=== PATIENT | female | born 1945 | race Caucasian/White ===

== ENCOUNTER 2016-12-04 19:50 | Inpatient (IN) | payer MEDICARE, MEDICAID, OTHER ==
[~2016-12-04] VITALS: Ht 172.7 cm; Wt 58.0 kg
[~2016-12-04 19:50] MED LIST: CARV6.25 PO; GABA300C3 PO; GLUCTAB PO; LEVO112T2 PO; METF500 PO; NORV5TAB PO; PERC7.5T13 PO; RANI150 PO; ZOLP10TA3 PO
[2016-12-04 19:52] VITALS: BP 104/51; PULSE 79; RESP 16; TEMP 97.8; O2SAT 97
--- NOTE | 2016-12-04 20:00 | PD ---
Physical Exam Time Seen by Provider: 19:57 Narrative 71 year old with complaints of generalized weakness, decreased appetite for the past few days, diarrhea today. Appears pale per daughter. Denies abdominal pain, d/p, sob, uri symptoms, fevers, recent abx use. VSS seen at triage desk. Awaiting bed placement. Data Data Last Documented VS Vital Signs Date Time Temp Pulse Resp B/P Pulse Ox O2 Delivery O2 Flow Rate FiO2 12/04/16 19:52 97.8 79 16 104/51 97 MDM Medical Record Reviewed: Yes Supervised Visit with PEPE: Yes Panfilo Jean Dec 04, 2016 20:00
[2016-12-04 20:27] VITALS: BP 110/62; PULSE 78; RESP 16; O2SAT 96
[2016-12-04] MEDS ORDERED: SODIUM CHLOR 0.9% 1000 ML INJ 1,000 ML IV ONE ×2 (20:30→22:00)
[2016-12-04] MEDS ORDERED: ONDANSETRON HCL 4 MG/2 ML VIAL IV ONE (20:30)
--- NOTE | 2016-12-04 20:34 | PD ---
HPI Chief Complaint: General Weakness Time Seen by Provider: 20:14 Travel History International Travel<30 days: No Contact w/Intl Traveler<30days: No Traveled to known affect area: No History of Present Illness HPI The patient is a 71 year old female who presents to the [facility] emergency department with a history of generalized weakness and fatigue with increased sleep over the last week and 3 today. She reports that today she began to have diarrhea. She reports that the stool is light brown in color and she's had diarrhea 4 times. She denies having any nausea or vomiting, however she has had a diminished appetite and has not been eating solids or drinking liquids today. She reports that her urine does have a strong odor, however it has normal coloration. She denies having any dysuria, hematuria, urinary urgency, or frequency. She denies any recent antibiotic use, foreign travel, camping, or unusual food intake. She does report having one family member who has had diarrhea for the last 2 weeks. A review of systems, the patient denies any recent fevers, cough, congestion, neck pain, chest pain, shortness of breath, abdominal pain, one-sided weakness, slurred speech, facial droop, difficulty with word finding ability, or dizziness PFSH Past Medical History Narrative Medical The patient's past medical history is significant for hypothyroid disorder, history of chronic back pain related to a back injury status post surgical repair approximately a year and a half ago, history of a DVT, history of hypertension, history of arthritis Hx Anticoagulant Therapy: Yes Heart Rhythm Problems: Yes Cardiovascular Problems: Yes Chemotherapy: Yes Dementia: Yes Diabetes: Yes Deep Vein Thrombosis: Yes (HX OF DVT) Hypertension: Yes Insomnia: Yes Respiratory: Yes Thyroid Disease: Yes (HYPOTHYROIDISM) ?: Not Past Surgical History Narrative Surgical The patient's past surgical history is significant for right knee replacement, back surgery, thyroidectomy, tonsillectomy Cholecystectomy: Yes Ear Surgery: Yes Joint Replacement: Yes (R. KNEE REPLACEMENT) Other Surgery: Yes (THYROIDECTOMY) Social History Alcohol Use: No Tobacco Use: No Substance Use: No Allergies-Medications (Allergen,Severity, Reaction): Coded Allergies: No Known Allergies (Unverified , 12/04/16) Reported Meds & Prescriptions Reported Meds & Active Scripts Active Norvasc (Amlodipine Besylate) 5 Mg Tab 5 Mg PO DAILY 30 Days Reported Zantac 150 Mg Tab (Ranitidine HCl) 150 Mg Tab 150 Mg PO BID Metformin (Metformin HCl) 500 Mg Tab 500 Mg PO DAILY IN THE PM Glucophage 500 mg (Metformin HCl) 500 Mg Tab 1,000 Mg PO DAILY IN THE AM Percocet 7.5/325 (Oxycodone/Acetaminophen) Oxycodone 7.5/325 Acetaminophen Tab 1 Tab PO BID Zolpidem Tartrate 10 Mg Tab 10 Mg PO HS Take 30 minutes before bedtime Levothyroxine 112 mcg (Levothyroxine Sodium) 112 Mcg Tab 224 Mcg PO DAILY Take 30 minutes before breakfast Coreg 6.25 mg (Carvedilol) 6.25 Mg Tab 6.25 Mg PO DAILY IN THE PM Coreg 6.25 mg (Carvedilol) 6.25 Mg Tab 12.5 Mg PO DAILY IN THE AM Gabapentin 300 Mg Cap 300 Mg PO HS Review of Systems Except as stated in HPI: all other systems reviewed are Neg General / Constitutional: No: Fever Eyes: No: Visual changes HENT: No: Headaches, Sore Throat, Rhinorrhea, Congestion Cardiovascular: No: Chest Pain or Discomfort, Dyspnea on exertion Respiratory: No: Cough, Shortness of Breath Gastrointestinal: Positive: Diarrhea, Changes in Bowel Habits, No: Nausea, Vomiting, Abdominal Pain, Hematemesis, Hematochezia, Constipation, Indigestion, Loss of Appetite Genitourinary: No: Dysuria, Flank Pain Musculoskeletal: No: Pain Skin: No Rash Neurologic: Positive: Weakness (generalized weakness), No: Focal Abnormalities , Change in Mentation, Slurred Speech, Sensory Disturbance Psychiatric: No: Depression Endocrine: No: Polydipsia Hematologic/Lymphatic: No: Easy Bruising Physical Exam Narrative General: The patient is a well-developed well-nourished female in no acute distress. Head and Neck exam: Head is normocephalic atraumatic. Eyes: EOMI, pupils are equal round and reactive to light. Nose: Midline septum with pink mucous membranes Mouth: Dentition unremarkable. Dry mucus membranes. Posterior oropharynx is not erythematous. No tonsillar hypertrophy. Uvula midline. Airway patent. Neck: No palpable lymphadenopathy. No nuchal rigidity. No thyromegaly. Cardiovascular: Regular rate and rhythm without murmurs, gallops, or rubs. Lungs: Clear to auscultation bilaterally. No wheezes, rhonchi, or rales. Abdomen: Soft, without tenderness to palpation in all 4 quadrants of the abdomen. No guarding, rebound, or rigidity. Normal bowel sounds are audible. No tenderness on palpation of McBurney's point. Extremities: No clubbing, cyanosis, or edema. 2+ pulses in all 4 extremities. No calf tenderness on palpation. Back: No spinous process tenderness to palpation. No costovertebral angle tenderness to palpation. Neurologic Exam: Cranial nerves 2-12 were intact on exam. Strength is 5/5 in all 4 extremities. No sensory deficits noted. Skin Exam: No rash noted. Intact skin that is warm and dry. The patient has poor skin turgor. Data Data Last Documented VS Vital Signs Date Time Temp Pulse Resp B/P Pulse Ox O2 Delivery O2 Flow Rate FiO2 12/04/16 20:40 16 12/04/16 20:27 80 12/04/16 20:27 110/62 96 Room Air 12/04/16 19:52 97.8 Orders Electrocardiogram (12/04/16 20:25) Complete Blood Count With Diff (12/04/16 20:25) Comprehensive Metabolic Panel (12/04/16 20:25) Creatine Kinase (Cpk) (12/04/16 20:25) Ckmb (Isoenzyme) Profile (12/04/16 20:25) Troponin I (12/04/16 20:25) B-Type Natriuretic Peptide (12/04/16 20:25) Blood Culture (12/04/16 20:25) C-Reactive Protein (Crp) (12/04/16 20:25) Lipase (12/04/16 20:25) Urinalysis - C+S If Indicated (12/04/16 20:25) Magnesium (Mg) (12/04/16 20:25) Chest, Single Ap (12/04/16 20:25) Iv Access Insert/Monitor (12/04/16 20:25) Ecg Monitoring (12/04/16 20:25) Oximetry (12/04/16 20:25) Sodium Chlor 0.9% 1000 Ml Inj (Ns 1000 M (12/04/16 20:30) Ondansetron Inj (Zofran Inj) (12/04/16 20:30) Urine Culture (12/04/16 21:00) Sodium Chlor 0.9% 1000 Ml Inj (Ns 1000 M (12/04/16 22:00) Cefepime Inj (Maxipime Inj) (12/04/16 21:58) Lactic Acid Sepsis Protocol (12/04/16 22:05) Admit Order (Ed Use Only) (12/04/16 22:15) Labs Laboratory Tests Test 12/04/16 21:00 White Blood Count 12.0 TH/MM3 Red Blood Count 3.70 MIL/MM3 Hemoglobin 10.8 GM/DL Hematocrit 32.0 % Mean Corpuscular Volume 86.5 FL Mean Corpuscular Hemoglobin 29.3 PG Mean Corpuscular Hemoglobin 33.9 % Concent Red Cell Distribution Width 13.2 % Platelet Count 235 TH/MM3 Mean Platelet Volume 10.3 FL Neutrophils (%) (Auto) 84.8 % Lymphocytes (%) (Auto) 5.2 % Monocytes (%) (Auto) 9.5 % Eosinophils (%) (Auto) 0.2 % Basophils (%) (Auto) 0.3 % Neutrophils # (Auto) 10.1 TH/MM3 Lymphocytes # (Auto) 0.6 TH/MM3 Monocytes # (Auto) 1.1 TH/MM3 Eosinophils # (Auto) 0.0 TH/MM3 Basophils # (Auto) 0.0 TH/MM3 CBC Comment DIFF FINAL Differential Comment Urine Color LIGHT-RED Urine Turbidity CLOUDY Urine pH 5.5 Urine Specific [place] 1.022 Urine Protein 100 mg/dL Urine Glucose (UA) NEG mg/dL Urine Ketones NEG mg/dL Urine Occult Blood LARGE Urine Nitrite NEG Urine Bilirubin NEG Urine Urobilinogen LESS THAN 2.0 MG/DL Urine Leukocyte Esterase LARGE Urine RBC 91 /hpf Urine WBC /hpf Urine WBC Clumps MANY Urine Squamous Epithelial 2 /hpf Cells Urine Bacteria MANY /hpf Urine Hyaline Casts 27 /lpf Microscopic Urinalysis Comment CULTURE INDICATED Sodium Level 139 MEQ/L Potassium Level 3.7 MEQ/L Chloride Level 103 MEQ/L Carbon Dioxide Level 22.7 MEQ/L Anion Gap 13 MEQ/L Blood Urea Nitrogen 63 MG/DL Creatinine 2.52 MG/DL Estimat Glomerular Filtration 19 ML/MIN Rate Random Glucose 107 MG/DL Calcium Level 8.6 MG/DL Magnesium Level 2.1 MG/DL Total Bilirubin 0.5 MG/DL Aspartate Amino Transf 20 U/L (AST/SGOT) Alanine Aminotransferase 17 U/L (ALT/SGPT) Alkaline Phosphatase 73 U/L Total Creatine Kinase 65 U/L Troponin I LESS THAN 0.02 NG/ML C-Reactive Protein 19.00 MG/DL B-Type Natriuretic Peptide 51 PG/ML Total Protein 7.3 GM/DL Albumin 2.9 GM/DL Lipase 200 U/L [facility] Medical Decision Making Medical Screen Exam Complete: Yes Emergency Medical Condition: Yes Medical Record Reviewed: Yes Interpretation(s) Last Impressions Chest X-Ray 12/04/162024 Signed Impressions: Service Date/Time: Sunday, December 04, 2016 20:29 - CONCLUSION: No acute disease. Jeffery Whiting MD Differential Diagnosis Dehydration, versus electrolyte derangements, versus sepsis, versus urinary tract infection, versus pneumonia, versus acute coronary syndrome Narrative Course During the course of the patients emergency department visit, the patients history, examination, and differential diagnosis were reviewed with the patient. The patient had IV access obtained and blood work sent for analysis. The patient was placed on a cross enterprise integrator with oximetry and blood pressure monitoring. An EKG was ordered. The patient was provided normal saline a 1 L IV fluid bolus, Zofran 4 mg IV. The patients laboratory studies were reviewed and remarkable for a white count of 12, hemoglobin 10.8, platelets 235 with 84.8 neutrophils, monocytes 5.2 monocytes 9.5, CMP is remarkable for BUN of 63, creatinine of 2.52 which is greatly increased compared to previously at 21 and 0.72 respectively in November 2015. Cardiac enzymes are unremarkable, C-reactive protein is elevated at 19, lipase 200, urinalysis appears to be the source of infection with large leukocyte esterase 91 rbc's innumerable WBCs, many clumps many bacteria. The patient meets sepsis criteria, therefore the patient was covered with cefepime 2 g IV for her urinary tract infection. The patient was given a second liter of normal saline IV fluids. A lactic acid was sent to complete her workup. Radiology studies were reviewed and remarkable for a chest x-ray shows no acute abnormality. The patients results were discussed with the patient, including the plan of care. I explained that further testing and/ or monitoring is indicated based on the patients history, examination, and/ or laboratory findings. Therefore, I recommended admission for additional evaluation. The patient expressed understanding and was agreeable with this plan. The patient was admitted to the hospital in guarded condition and [facility] Sepsis Criteria SIRS Criteria (2 or more): Heart rate over 90, WBC > 93545, < 4000 or > 10% bands Sepsis Criteria (SIRS+source): Infect source susp/known Criteria Outcome: Meets SIRS criteria, Meets sepsis criteria Physician Communication Physician Communication The patient's case will be discussed with Dr. Argueta. She did agree to admit the patient for further evaluation and treatment at this time. Diagnosis Primary Impression: Generalized weakness Additional Impressions: Urinary tract infection Qualified Code: N39.0 - Urinary tract infection without hematuria, site unspecified Acute renal failure Qualified Code: N17.9 - Acute renal failure, unspecified acute renal failure type Sepsis Qualified Code: A41.9 - Sepsis, due to unspecified organism Admitting Information Admitting Physician Requests: Viky Roy MD Dec 04, 2016 20:34
[2016-12-04 20:40] VITALS: RESP 16
--- NOTE | 2016-12-04 21:20 | RADRPT ---
EXAM DATE/TIME: 12/04/2016 20:29 [facility] COMPARISON: No previous studies available for comparison. INDICATIONS : Chest pain. MEDICAL HISTORY : None. SURGICAL HISTORY : None. ENCOUNTER: Initial ACUITY: 1 day PAIN SCORE: 0/10 LOCATION: Bilateral chest FINDINGS: A single view of the chest demonstrates the lungs to be symmetrically aerated without evidence of mas s, infiltrate or effusion. The cardiomediastinal contours are unremarkable. The patient is status po st upper thoracic fusion with pedicle screws and posterior fixation tracey. There are overlying electroc ardiogram leads. CONCLUSION: No acute disease. Jeffery Whiting MD on December 04, 2016 at 21:17 Board Certified Radiologist. This report was verified electronically.
[2016-12-04 21:31] LABS: AUTOMATED NEUTROPHIL # 10.1 TH/MM3 (1.8-7.7); BASOPHIL % 0.3 % (0.0-2.0); EOSINOPHIL % 0.2 % (0.0-4.0); HEMO FLAGS DIFF FINAL; LYMPH % 5.2 % (9.0-44.0); LYMPHOCYTE # 0.6 TH/MM3 (1.0-4.8); MEAN CELL VOLUME 86.5 FL (80.0-100.0); MEAN CORPUSCULAR HEMOGLOBIN 29.3 PG (27.0-34.0); MEAN CORPUSCULAR HGB CONC 33.9 % (32.0-36.0); MONO % 9.5 % (0.0-8.0); NEUT % 84.8 % (16.0-70.0); PLATELET COUNT 235 TH/MM3 (150-450); RED CELL DISTRIBUTION WIDTH 13.2 % (11.6-17.2)
[2016-12-04 21:32] LABS: BACTERIA, URINE MANY /hpf; BLOOD, URINE LARGE (NEG); COMMENT (UR) CULTURE INDICATED; CULTURE IF INDICATED CULTURE INDICATED; GLUCOSE,URINE NEG (NEG); HYALINE CAST, URINE 27 /lpf (RARE); KETONE, URINE NEG (NEG); NITRITE,URINE NEG (NEG); PH, URINE 5.5 (5.0-8.5); SQUAMOUS EPITHELIAL CELL URINE 2 /hpf (0-5)
[2016-12-04 21:33] LABS: URINE COLOR LIGHT-RED (YELLW/STRAW)
[2016-12-04 21:46] LABS: ANION GAP 13 MEQ/L (5-15); AST (GOT) 20 U/L (15-37); BICARBONATE 22.7 MEQ/L (21.0-32.0); BLOOD UREA NITROGEN 63 MG/DL (7-18); CHLORIDE 103 MEQ/L (98-107); GLOMERULAR FILTRATION RATE 19 ML/MIN (>89); MAGNESIUM 2.1 MG/DL (1.5-2.5); POTASSIUM 3.7 MEQ/L (3.5-5.1); SODIUM (NA) 139 MEQ/L (136-145)
[2016-12-04 21:50] LABS: ALKALINE PHOSPHATASE 73 U/L (45-117); ALT (GPT) 17 U/L (10-53); TOTAL BILIRUBIN ADULT 0.5 MG/DL (0.2-1.0)
[2016-12-04 21:53] LABS: CREATINE KINASE 65 U/L (26-192)
[2016-12-04] MEDS ORDERED: CEFEPIME INJ 2,000 MG in SODIUM CHLORIDE 0.9% INJ 100 ML IV STA (21:58)
[2016-12-04] MEDS ORDERED: SODIUM CHLORIDE 0.9% FLUSH 10 ML FLUSH IV FLUSH PRN (22:30)
[2016-12-04] MEDS ORDERED: NALOXONE HCL 0.4 MG/ML AMP IV PRN (22:30)
--- NOTE | 2016-12-04 23:21 | HHI.HP ---
[facility] Admission Diagnosis UTI, Sepsis, Acute renal failure due to dehydration Diagnoses: Chief Complaint: "not feeling well" Travel History International Travel<30 Days: No Contact w/Intl Traveler <30 Da: No Traveled to Known Affected Are: No History of Present Illness This is a 71-year-old female patient with past medical history which includes hypertension, diabetes eyes, hypothyroidism, asthma, chronic brought bladder prolapse and history of DVT after back surgery. Patient reports that she haven' t been feeling well for the past 4-5 days. Has had a poor appetite poor PO intake and diarrhea that started today has gone x 4-5 no recent abx. Patient denies black tarry stools or bright red blood per rectal, rectal pain, abd pain , fevers, chills, shortness of breath chest pain, denies dysuria or increased frequency or vomiting. Does report slight nausea but no vomiting. Patient lives at home with family, family at bedside reports patient is usually independent in her daily activities and very active. Patient's family noticed that she's been sleeping more over the past 4-5 days and has just had a poor appetite. Daughter has had diarrhea for the past 2 weeks. Patient has occasional urine/stool incontinence after back surgery. Review of Systems Except as stated in HPI: all other systems reviewed are Neg Past Family Social History Past Medical History HTN, DM, hypothyroid, asthma, chronic bladder prolapse and DVT after back surgery Past Surgical History cholecystectomy back surgery R knee replacement Reported Medications Atorvastatin (Atorvastatin Calcium) 40 Mg Tab 40 Mg PO HS Aspirin 81 Mg Chew 81 Mg CHEW DAILY Carvedilol 6.25 Mg Tab 6.25 Mg PO HS Carvedilol 6.25 Mg Tab 12.5 Mg PO DAILY Metformin (Metformin HCl) 500 Mg Tab 500 Mg PO HS With a meal Metformin (Metformin HCl) 1,000 Mg Tab 1,000 Mg PO DAILY With a meal Gabapentin 300 Mg Cap 300 Mg PO HS Ranitidine (Ranitidine HCl) 150 Mg Tab 150 Mg PO BID Hydrochlorothiazide 25 Mg Tab 25 Mg PO DAILY Losartan (Losartan Potassium) 50 Mg Tab 50 Mg PO DAILY Levothyroxine (Levothyroxine Sodium) 112 Mcg Tab 224 Mcg PO DAILY Amlodipine (Amlodipine Besylate) 5 Mg Tab 5 Mg PO DAILY Allergies: Coded Allergies: No Known Allergies (Unverified , 12/04/16) Active Ordered Medications Current Medications Medications (Trade) Dose Ordered Sig/Christo Route Start Time Stop Time Status Last Admin (NS Flush) 2 ml UNSCH PRN IV FLUSH 12/04/16 22:30 (NS Flush) 2 ml BID IV FLUSH 12/05/16 09:00 Naloxone HCl 0.4 mg 0.4 mg UNSCH PRN IV 12/04/16 22:30 (Cipro 400 Mg Premix) 200 ml @ 200 mls/hr Q12H IV 12/05/16 09:00 (Heparin Inj) 5,000 units Q12HR SQ 12/05/16 09:00 Family History Mother secondary to MD Family hx: father had "hole in his heart" brother secondary to ling CA Sister had CVA Social History Lives with family is normally independent with ADLs No reported EtOH use tobacco use or illicit drug use Physical Exam Vital Signs Vital Signs Date Time Temp Pulse Resp B/P Pulse Ox O2 Delivery O2 Flow Rate FiO2 12/04/16 20:40 16 12/04/16 20:27 80 16 12/04/16 20:27 78 16 110/62 96 Room Air 12/04/16 19:52 97.8 79 16 104/51 97 Physical Exam GENERAL: This is a well-nourished, well-developed patient, in no apparent distress. SKIN: No rashes, ecchymoses or lesions. Cool and dry. HEAD: Atraumatic. Normocephalic. No temporal or scalp tenderness. EYES: Extraocular motions intact. No scleral icterus. No injection or drainage. ENT: Nose without bleeding, purulent drainage or septal hematoma. Throat without erythema, tonsillar hypertrophy or exudate. Uvula midline. Airway patent. NECK: Trachea midline. No JVD or lymphadenopathy. Supple, nontender, no meningeal signs. CARDIOVASCULAR: Regular rate and rhythm without murmurs, gallops, or rubs. RESPIRATORY: Clear to auscultation. Breath sounds equal bilaterally. No wheezes , rales, or rhonchi. GASTROINTESTINAL: Abdomen soft, non-tender, nondistended.No guarding. GENITOURINARY: Bladder distention palpable on exam MUSCULOSKELETAL: Extremities without clubbing, cyanosis, or edema. No joint tenderness, effusion, or edema noted. No calf tenderness. Negative Homans sign bilaterally. NEUROLOGICAL: Awake and alert. No focal deficits identified. Motor and sensory grossly within normal limits. 4 out of 5 muscle strength in all muscle groups. Normal speech. Laboratory Laboratory Tests Test 12/04/16 21:00 White Blood Count 12.0 Red Blood Count 3.70 Hemoglobin 10.8 Hematocrit 32.0 Mean Corpuscular Volume 86.5 Mean Corpuscular Hemoglobin 29.3 Mean Corpuscular Hemoglobin 33.9 Concent Red Cell Distribution Width 13.2 Platelet Count 235 Mean Platelet Volume 10.3 Neutrophils (%) (Auto) 84.8 Lymphocytes (%) (Auto) 5.2 Monocytes (%) (Auto) 9.5 Eosinophils (%) (Auto) 0.2 Basophils (%) (Auto) 0.3 Neutrophils # (Auto) 10.1 Lymphocytes # (Auto) 0.6 Monocytes # (Auto) 1.1 Eosinophils # (Auto) 0.0 Basophils # (Auto) 0.0 CBC Comment DIFF FINAL Differential Comment Urine Color LIGHT-RED Urine Turbidity CLOUDY Urine pH 5.5 Urine Specific [place] 1.022 Urine Protein 100 Urine Glucose (UA) NEG Urine Ketones NEG Urine Occult Blood LARGE Urine Nitrite NEG Urine Bilirubin NEG Urine Urobilinogen LESS THAN 2.0 Urine Leukocyte Esterase LARGE Urine RBC 91 Urine WBC Urine WBC Clumps MANY Urine Squamous Epithelial 2 Cells Urine Bacteria MANY Urine Hyaline Casts 27 Microscopic Urinalysis Comment CULTURE INDICATED Sodium Level 139 Potassium Level 3.7 Chloride Level 103 Carbon Dioxide Level 22.7 Anion Gap 13 Blood Urea Nitrogen 63 Creatinine 2.52 Estimat Glomerular Filtration 19 Rate Random Glucose 107 Calcium Level 8.6 Magnesium Level 2.1 Total Bilirubin 0.5 Aspartate Amino Transf 20 (AST/SGOT) Alanine Aminotransferase 17 (ALT/SGPT) Alkaline Phosphatase 73 Total Creatine Kinase 65 Troponin I LESS THAN 0.02 C-Reactive Protein 19.00 B-Type Natriuretic Peptide 51 Total Protein 7.3 Albumin 2.9 Lipase 200 Date/Time Procedure Status Source Growth 12/04/16 21:00 Urine Culture Received Urine Random Urine Pending 12/04/16 21:00 Aerobic Blood Culture Received Blood Peripheral Pending 12/04/16 21:00 Anaerobic Blood Culture Received Blood Peripheral Pending Result Diagram: 12/04/16 2100 12/04/162099 Imaging Last Impressions Chest X-Ray 12/04/162024 Signed Impressions: Service Date/Time: Sunday, December 04, 2016 20:29 - CONCLUSION: No acute disease. Jeffery Whiting MD Assessment and Plan Assessment and Plan This is a 71-year-old female patient with past medical history which includes hypertension, diabetes eyes, hypothyroidism, asthma, chronic brought bladder prolapse and history of DVT after back surgery. Patient reports that she haven' t been feeling well for the past 4-5 days. Has had a poor appetite poor PO intake and diarrhea that started today has gone x 4-5 no recent abx. EMILIA- likely secondary to dehydration IV hydration avoid nephrotoxins recheck in AM Leukocytosis UTI per UA- culture pending received cefepime 2 gram in ER continue cipro IV await culture results Bladder distended on exam- bladder scan call MD if >200 ml HTN- hold losartan in light of acute kidney injury Continue carvedilol and Norvasc DM-2 Hold metformin in light of acute kidney injury accuchecks ACHS with SSI coverage Hyperlipidemia continue atorvastatin 40 mg daily hypothyroidism- TSH pending continue Synthroid home dose 224 mcg daily DVT prophylaxis with heparin subcutaneous Discussed with ER provider, nursing, patient and family members at bedside Written by Fang Huerta, acting as scribe for Dr. Argueta on 12/05/16 at 2321. This note was transcribed by scribe [ Fang Huerta]. I, Dr. Yanet Argueta personally performed the history, physical exam, and medical decision making; and confirmed the accuracy of the information in the transcribed note. Authenticated by Dr. Yanet Argueta on 12/05/16 at 2321. Physician Certification 2 Midnight Certification Type: Admission for Inpatient Services Order for Inpatient Services The services are ordered in accordance with Medicare regulations or non- Medicare payer requirements, as applicable. In the case of services not specified as inpatient-only, they are appropriately provided as inpatient services in accordance with the 2-midnight benchmark. Estimated LOS (days): 4 days is the estimated time the patient will need to remain in the hospital, assuming treatment plan goals are met and no additional complications. Post-Hospital Plan: Home Fang Huerta Dec 04, 2016 23:21 Yanet Argueta MD December 24, 2016 04:47
[2016-12-05] VITALS (9 sets, daily range): BP systolic 108–148; BP diastolic 61–76; PULSE 71–99; RESP 16–18; TEMP 97.9–98.7; O2SAT 93–98
[2016-12-05] MEDS ORDERED: AMLO5TAB2 PO (00:10)
[2016-12-05] MEDS ORDERED: CARV6.252 PO ×2 (00:17)
[2016-12-05] MEDS ORDERED: HYDR25TA5 PO (00:17)
[2016-12-05] MEDS ORDERED: METF1000 PO (00:17)
[2016-12-05] MEDS ORDERED: LOSA50TA PO (00:17)
[2016-12-05] MEDS ORDERED: ATOR40TA16 PO (00:17)
[2016-12-05] MEDS ORDERED: GABA300C5 PO (00:17)
[2016-12-05] MEDS ORDERED: LEVO112T2 PO (00:17)
[2016-12-05] MEDS ORDERED: METF500T PO (00:17)
[2016-12-05] MEDS ORDERED: RANI150T PO (00:17)
[2016-12-05] MEDS ORDERED: ASPI81CH CHEW (00:17)
[2016-12-05] MEDS: LEVOTHYROXINE SODIUM 112 MCG TAB PO SCH (06:28)
[2016-12-05] MEDS: HEPARIN SODIUM - SQ 10,000 UNITS/ML VIAL SQ SCH ×2 (09:00→21:53)
[2016-12-05] MEDS: CARVEDILOL 6.25 MG TAB PO SCH ×2 (09:00→21:52)
[2016-12-05] MEDS: ASPIRIN 81 MG CHEW TAB CHEW SCH (09:00)
[2016-12-05] MEDS: amLODIPine BESYLATE 5 MG TAB PO SCH (09:00)
[2016-12-05] MEDS: FAMOTIDINE 20 MG/2 ML VIAL IV SCH ×2 (09:00→21:53)
[2016-12-05] MEDS ORDERED: CIPROFLOXACIN 400 MG PREMIX 200 ML IV SCH (09:00)
[2016-12-05] MEDS: SODIUM CHLORIDE 0.9% FLUSH 10 ML FLUSH IV FLUSH SCH ×2 (09:01→21:53)
[2016-12-05] MEDS: CIPROFLOXACIN 400 MG PREMIX 200 ML IV SCH (09:01)
[2016-12-05 10:55] LABS: AUTOMATED NEUTROPHIL # 5.8 TH/MM3 (1.8-7.7); BASOPHIL % 0.3 % (0.0-2.0); EOSINOPHIL # 0.1 TH/MM3 (0-0.4); EOSINOPHIL % 0.9 % (0.0-4.0); HEMATOCRIT 30.5 % (35.0-46.0); HEMO FLAGS DIFF FINAL; LYMPH % 5.7 % (9.0-44.0); LYMPHOCYTE # 0.4 TH/MM3 (1.0-4.8); MEAN CELL VOLUME 87.3 FL (80.0-100.0); MEAN CORPUSCULAR HEMOGLOBIN 28.6 PG (27.0-34.0); MEAN CORPUSCULAR HGB CONC 32.8 % (32.0-36.0); MONO % 12.6 % (0.0-8.0); NEUT % 80.5 % (16.0-70.0); PLATELET COUNT 135 TH/MM3 (150-450); RED BLOOD COUNT 3.49 MIL/MM3 (4.00-5.30); RED CELL DISTRIBUTION WIDTH 13.1 % (11.6-17.2); WHITE BLOOD COUNT 7.2 TH/MM3 (4.0-11.0)
--- NOTE | 2016-12-05 11:57 | EKG ---
Date Performed: 12/04/2016 Time Performed: 20:36:19 PTAGE: 71 years EKG: Sinus rhythm BORDERLINE RIGHT AXIS DEVIATION BORDERLINE ECG PREVIOUS TRACING : 12/06/2015 16.25 DOCTOR: Joaquín Randolph Interpretating Date/Time 12/05/2016 11:52:36
[2016-12-05 11:58] LABS: BICARBONATE 21.8 MEQ/L (21.0-32.0); POTASSIUM 3.3 MEQ/L (3.5-5.1)
--- NOTE | 2016-12-05 14:09 | HHI.PR ---
Subjective Remarks Patient reports that she is feeling better. Afebrile. No abdominal pain. Objective Vitals Vital Signs Date Time Temp Pulse Resp B/P Pulse Ox O2 Delivery O2 Flow Rate FiO2 12/05/16 12:00 97.9 99 18 108/61 98 12/05/16 08:35 Room Air 12/05/16 08:00 98.1 75 18 119/64 95 12/05/16 04:00 98.7 82 16 136/65 93 12/05/16 02:16 86 12/05/16 01:58 Room Air 12/05/16 01:40 98.1 83 16 130/71 94 12/05/16 00:00 88 16 120/62 95 Room Air 12/04/16 20:40 16 12/04/16 20:27 80 16 12/04/16 20:27 78 16 110/62 96 Room Air 12/04/16 19:52 97.8 79 16 104/51 97 I/O 12/04/16 12/04/16 12/04/16 12/05/16 12/05/16 12/05/16 07:00 15:00 23:00 07:00 15:00 23:00 Intake Total 200 ml Output Total 325 ml Balance -125 ml Intake Oral 200 ml Output Urine Total 325 ml Bladder Scan Volume Amount 234 ml 350 ml # Bowel Movements 0 Result Diagram: 12/05/1634 12/05/16 0934 Imaging Last Impressions Chest X-Ray 12/04/162024 Signed Impressions: Service Date/Time: Sunday, December 04, 2016 20:29 - CONCLUSION: No acute disease. Jeffery Whiting MD Objective Remarks GENERAL: Elderly female in no acute distress, sitting up in the chair. CARDIOVASCULAR: Normal rate and regular rhythm without murmurs, gallops, or rubs. RESPIRATORY: Good respiratory efforts. Breath sounds equal and clear to auscultation bilaterally. GASTROINTESTINAL: Abdomen soft, non-tender, non-distended. Normal active bowel sounds MUSCULOSKELETAL: Extremities without cyanosis, or edema. NEURO: Alert & Oriented x4 to person, place, time, situation. Moves all ext x4 PSYCH: Appropriate mood and affect. A/P Assessment and Plan 71-year-old female patient with past medical history which includes hypertension , diabetes eyes, hypothyroidism, asthma, chronic brought bladder prolapse and history of DVT after back surgery. Patient reports that she haven't been feeling well for the past 4-5 days. Has had a poor appetite poor PO intake and diarrhea that started today has gone x 4-5 no recent abx. EMILIA- likely secondary to dehydration Continue IV hydration avoid nephrotoxins Follow-up labs. Leukocytosis UTI per UA- culture pending received cefepime 2 gram in ER continue Cipro IV await culture results Bladder distended on admission/reported history of uterine/bladder prolapse - Will obtain renal/bladder ultrasound. - If retaining urine, will put in Price and patient will need to follow with urology. HTN- hold losartan in light of acute kidney injury Continue carvedilol and Norvasc DM-2 Hold metformin in light of acute kidney injury accuchecks ACHS with SSI coverage Hyperlipidemia continue atorvastatin 40 mg daily hypothyroidism- TSH pending continue Synthroid home dose 224 mcg daily Netta Garcia MD Dec 05, 2016 14:09
[2016-12-05] MEDS ORDERED: 1/2 NS + KCL 20 MEQ INJ 1,000 ML IV SCH (14:15)
[2016-12-05] MEDS: ATORVASTATIN 40 MG TAB PO SCH (21:52)
[2016-12-06] VITALS (8 sets, daily range): BP systolic 123–154; BP diastolic 58–82; PULSE 63–76; RESP 12–20; TEMP 97.5–99; O2SAT 96–100
[2016-12-06] MEDS: LEVOTHYROXINE SODIUM 112 MCG TAB PO SCH (05:51)
[2016-12-06 06:40] LABS: HEMATOCRIT 32.8 % (35.0-46.0); MEAN CELL VOLUME 86.6 FL (80.0-100.0); MEAN CORPUSCULAR HEMOGLOBIN 29.9 PG (27.0-34.0); MEAN CORPUSCULAR HGB CONC 34.6 % (32.0-36.0); PLATELET COUNT 182 TH/MM3 (150-450); RED BLOOD COUNT 3.79 MIL/MM3 (4.00-5.30); RED CELL DISTRIBUTION WIDTH 13.2 % (11.6-17.2); REVIEW FLAG FINAL; WHITE BLOOD COUNT 7.4 TH/MM3 (4.0-11.0)
[2016-12-06 07:07] LABS: BICARBONATE 26.2 MEQ/L (21.0-32.0); POTASSIUM 3.6 MEQ/L (3.5-5.1)
[2016-12-06] MEDS: CARVEDILOL 6.25 MG TAB PO SCH ×2 (08:48→21:11)
[2016-12-06] MEDS: HEPARIN SODIUM - SQ 10,000 UNITS/ML VIAL SQ SCH ×2 (08:49→21:11)
[2016-12-06] MEDS: FAMOTIDINE 20 MG/2 ML VIAL IV SCH ×2 (08:50→21:12)
[2016-12-06] MEDS: ASPIRIN 81 MG CHEW TAB CHEW SCH (08:50)
[2016-12-06] MEDS: CIPROFLOXACIN 400 MG PREMIX 200 ML IV SCH (08:56)
[2016-12-06] MEDS: amLODIPine BESYLATE 5 MG TAB PO SCH (08:57)
[2016-12-06] MEDS: SODIUM CHLORIDE 0.9% FLUSH 10 ML FLUSH IV FLUSH SCH ×2 (08:57→21:12)
--- NOTE | 2016-12-06 09:18 | HHI.PR ---
Subjective Remarks Patient reports she is feeling better. Eating well. No nausea or vomiting. Afebrile. Objective Vitals Vital Signs Date Time Temp Pulse Resp B/P Pulse Ox O2 Delivery O2 Flow Rate FiO2 12/06/16 08:15 Room Air 12/06/16 04:00 Room Air 12/06/16 04:00 99.0 76 20 133/63 97 12/06/16 00:00 98.8 75 14 138/63 96 12/06/16 00:00 Room Air 12/05/16 20:26 73 12/05/16 20:00 Room Air 12/05/16 20:00 98.5 84 16 148/76 97 12/05/16 16:00 98.1 71 18 131/63 95 12/05/16 12:00 97.9 99 18 108/61 98 I/O 12/05/16 12/05/16 12/05/16 12/06/16 12/06/16 12/06/16 07:00 15:00 23:00 07:00 15:00 23:00 Intake Total 200 ml 926 ml 788 ml 120 ml Output Total 325 ml 325 ml 650 ml Balance -125 ml 601 ml 788 ml -530 ml Intake Oral 200 ml 720 ml 120 ml IV Total 206 ml 788 ml Output Urine Total 325 ml 325 ml 650 ml Bladder Scan Volume Amount 234 ml 350 ml # Voids 1 # Bowel Movements 0 0 0 Result Diagram: 12/06/1660212/06/16 0603 Imaging Last Impressions Chest X-Ray 12/04/162024 Signed Impressions: Service Date/Time: Sunday, December 04, 2016 20:29 - CONCLUSION: No acute disease. Jeffery Whiting MD Objective Remarks GENERAL: Elderly female in no acute distress, sitting up in the bed. CARDIOVASCULAR: Normal rate and regular rhythm without murmurs, gallops, or rubs. RESPIRATORY: Good respiratory efforts. Breath sounds equal and clear to auscultation bilaterally. GASTROINTESTINAL: Abdomen soft, non-tender, non-distended. Normal active bowel sounds MUSCULOSKELETAL: Extremities without cyanosis, or edema. NEURO: Alert & Oriented x4 to person, place, time, situation. Moves all ext x4 PSYCH: Appropriate mood and affect. A/P Assessment and Plan 71-year-old female patient with past medical history which includes hypertension , diabetes eyes, hypothyroidism, asthma, chronic brought bladder prolapse and history of DVT after back surgery. Patient reports that she haven't been feeling well for the past 4-5 days. Has had a poor appetite poor PO intake and diarrhea that started today has gone x 4-5 no recent abx. EMILIA- likely secondary to dehydration: Improving Continue IV hydration avoid nephrotoxins Follow-up labs. Leukocytosis, UTI without sepsis UTI per UA- continue Cipro IV await culture results Bladder distended on admission/reported history of uterine/bladder prolapse -Continue to monitor - If retaining urine, will put in Price and patient will need to follow with urology. HTN- hold losartan in light of acute kidney injury Continue carvedilol and Norvasc DM-2 Hold metformin in light of acute kidney injury accuchecks ACHS with SSI coverage Hyperlipidemia continue atorvastatin 40 mg daily hypothyroidism- TSH pending continue Synthroid home dose 224 mcg daily Discharge Planning Possible discharge tomorrow if renal function continues to improve and patient is stable. Netta Garcia MD Dec 06, 2016 09:18
[2016-12-06] MEDS ORDERED: SODIUM CHLOR 0.9% 1000 ML INJ 1,000 ML IV SCH (10:00)
[2016-12-06] MEDS: ATORVASTATIN 40 MG TAB PO SCH (21:11)
[2016-12-06] MEDS: CEFUROXIME AXETIL 500 MG TAB PO SCH (21:11)
[2016-12-07] VITALS: BP 145/69; PULSE 68; RESP 14; TEMP 98.9; O2SAT 95
[2016-12-07 04:00] VITALS: BP 147/72; PULSE 66; RESP 14; TEMP 97.2; O2SAT 96
[2016-12-07] MEDS: LEVOTHYROXINE SODIUM 112 MCG TAB PO SCH (06:04)
[2016-12-07 07:51] LABS: HEMATOCRIT 32.6 % (35.0-46.0); MEAN CORPUSCULAR HEMOGLOBIN 28.6 PG (27.0-34.0); MEAN CORPUSCULAR HGB CONC 33.2 % (32.0-36.0); PLATELET COUNT 183 TH/MM3 (150-450); RED BLOOD COUNT 3.78 MIL/MM3 (4.00-5.30); RED CELL DISTRIBUTION WIDTH 13.5 % (11.6-17.2); REVIEW FLAG FINAL
[2016-12-07 08:00] VITALS: BP 147/83; PULSE 72; RESP 20; TEMP 97.8; O2SAT 99
[2016-12-07 08:14] LABS: BICARBONATE 25.9 MEQ/L (21.0-32.0); POTASSIUM 3.4 MEQ/L (3.5-5.1)
[2016-12-07] MEDS ORDERED: CEFU1TAB20 PO (08:46)
--- NOTE | 2016-12-07 08:46 | HHI.DCPOC ---
Discharge Care Plan Diagnosis: (1) Generalized weakness (2) Urinary tract infection (3) Acute renal failure (4) Sepsis Goals to Promote Your Health * To prevent worsening of your condition and complications * To maintain your health at the optimal level Directions to Meet Your Goals Take your medications as prescribed Follow your dietary instruction Follow activity as directed Keep your appointments as scheduled Take your immunizations and boosters as scheduled If your symptoms worsen call your PCP, if no PCP go to Urgent Care Center or Emergency Room Smoking is Dangerous to Your Health. Avoid second hand smoke Call the 24-hour hour crisis hotline for domestic abuse at Netta Garcia MD Dec 07, 2016 08:46
[2016-12-07] MEDS: ASPIRIN 81 MG CHEW TAB CHEW SCH (08:56)
[2016-12-07] MEDS: CEFUROXIME AXETIL 500 MG TAB PO SCH (08:57)
[2016-12-07] MEDS: amLODIPine BESYLATE 5 MG TAB PO SCH (08:58)
[2016-12-07] MEDS: CARVEDILOL 6.25 MG TAB PO SCH (08:58)
[2016-12-07] MEDS: HEPARIN SODIUM - SQ 10,000 UNITS/ML VIAL SQ SCH (08:59)
[2016-12-07] MEDS: SODIUM CHLORIDE 0.9% FLUSH 10 ML FLUSH IV FLUSH SCH (08:59)
[2016-12-07] MEDS: FAMOTIDINE 20 MG/2 ML VIAL IV SCH (09:00)
[2016-12-07] MEDS ORDERED: FAMOTIDINE 20 MG TAB PO SCH (21:00)
--- NOTE | 2017-01-22 15:22 | HHI.DS ---
Discharge Summary Admission Date Dec 04, 2016 at 22:17 Discharge Date: January 06, 2017 Admitting Diagnosis UTI, Sepsis, Acute renal failure due to dehydration (1) Sepsis ICD Code: A41.9 (2) Acute renal failure ICD Code: N17.9 (3) Urinary tract infection ICD Code: N39.0 Procedures None Brief History - From Admission History of present illness from the admitting physician This is a 71-year-old female patient with past medical history which includes hypertension, diabetes eyes, hypothyroidism, asthma, chronic brought bladder prolapse and history of DVT after back surgery. Patient reports that she haven' t been feeling well for the past 4-5 days. Has had a poor appetite poor PO intake and diarrhea that started today has gone x 4-5 no recent abx. Patient denies black tarry stools or bright red blood per rectal, rectal pain, abd pain , fevers, chills, shortness of breath chest pain, denies dysuria or increased frequency or vomiting. Does report slight nausea but no vomiting. Patient lives at home with family, family at bedside reports patient is usually independent in her daily activities and very active. Patient's family noticed that she's been sleeping more over the past 4-5 days and has just had a poor appetite. Daughter has had diarrhea for the past 2 weeks. Patient has occasional urine/stool incontinence after back surgery. Imaging Last Impressions Chest X-Ray 12/04/162024 Signed Impressions: Service Date/Time: Sunday, December 04, 2016 20:29 - CONCLUSION: No acute disease. Jeffery Whiting MD PE at Discharge GENERAL: Elderly female in no acute distress, sitting up in the bed. CARDIOVASCULAR: Normal rate and regular rhythm without murmurs, gallops, or rubs. RESPIRATORY: Good respiratory efforts. Breath sounds equal and clear to auscultation bilaterally. GASTROINTESTINAL: Abdomen soft, non-tender, non-distended. Normal active bowel sounds MUSCULOSKELETAL: Extremities without cyanosis, or edema. NEURO: Alert & Oriented x4 to person, place, time, situation. Moves all ext x4 PSYCH: Appropriate mood and affect. Pt update on day of discharge Patient reports she is feeling well today. Anxious to go home. No fevers or chills. Hospital Course 71-year-old female patient with past medical history which includes hypertension , diabetes eyes, hypothyroidism, asthma, chronic brought bladder prolapse and history of DVT after back surgery. Patient reports that she haven't been feeling well for the past 4-5 days. Has had a poor appetite poor PO intake and diarrhea that started today has gone x 4-5 no recent abx. Evaluation and treatment course detailed below: EMILIA- likely secondary to dehydration: She was treated with IV fluid and her renal function returned to baseline. Leukocytosis, UTI without sepsis UTI per UA- Patient completed treatment with antibiotics in the hospital. Bladder distended on admission/reported history of uterine/bladder prolapse -Patient advised to follow-up with urologist outpatient. HTN- Losartan held initially due to renal impairment. This was resumed. Continue carvedilol and Norvasc DM-2 Metformin held. This was resumed on discharge. Hyperlipidemia continue atorvastatin 40 mg daily hypothyroidism- continue Synthroid home dose 224 mcg daily Pt Condition on Discharge: Good Discharge Disposition: Discharge Home Discharge Time: <= 30 minutes Discharge Instructions DIET: Follow Instructions for: Heart Healthy Diet Activities you can perform: Regular-No Restrictions Follow up Referrals: PCP Follow-up - 2 Weeks Continued Medications: Amlodipine (Amlodipine) 5 Mg Tab 5 MG PO DAILY Blood Pressure Management #30 Ref 0 TAB Aspirin (Aspirin) 81 Mg Chew 81 MG CHEW DAILY Ref 0 TAB Atorvastatin (Atorvastatin) 40 Mg Tab 40 MG PO HS Cholesterol Management #30 Ref 0 TAB Carvedilol (Carvedilol) 6.25 Mg Tab 12.5 MG PO DAILY #60 Ref 0 TAB Carvedilol (Carvedilol) 6.25 Mg Tab 6.25 MG PO HS #60 Ref 0 TAB Hydrochlorothiazide (Hydrochlorothiazide) 25 Mg Tab 25 MG PO DAILY #30 Ref 0 TAB Levothyroxine (Levothyroxine) 112 Mcg Tab 224 MCG PO DAILY Thyroid #30 Ref 0 TAB Losartan (Losartan) 50 Mg Tab 50 MG PO DAILY Blood Pressure Management #30 Ref 0 TAB Metformin (Metformin) 1,000 Mg Tab 1000 MG PO DAILY With a meal Blood Sugar Management #30 Ref 0 TAB Metformin (Metformin) 500 Mg Tab 500 MG PO HS With a meal Blood Sugar Management #30 Ref 0 TAB Ranitidine (Ranitidine) 150 Mg Tab 150 MG PO BID Heartburn Management #60 Ref 0 TAB Netta Garcia MD January 22, 2017 15:22
== END 2016-12-07 12:18 | disposition home or self-care (01) | DRG 683 ==
LOC: NEPE 19:50 → NEDA 22:17 → N04B 12-05 01:40
PROVIDERS: ADMIT Family Medicine; ATTEND Family Medicine
DX: N17.9 Acute kidney failure, unspecified (principal); N39.0 Urinary tract infection, site not specified; F03.90 Unspecified dementia, unspecified severity, without behavioral disturbance, psychotic disturbance, mood disturbance, and anxiety; E11.9 Type 2 diabetes mellitus without complications; Z96.651 Presence of right artificial knee joint; E03.9 Hypothyroidism, unspecified; I10 Essential (primary) hypertension; G47.00 Insomnia, unspecified; M54.9 Dorsalgia, unspecified; M19.90 Unspecified osteoarthritis, unspecified site; G89.21 Chronic pain due to trauma; R63.0 Anorexia; R19.7 Diarrhea, unspecified; J45.909 Unspecified asthma, uncomplicated; E78.5 Hyperlipidemia, unspecified; Z79.899 Other long term (current) drug therapy; Z86.718 Personal history of other venous thrombosis and embolism; Z79.84 Long term (current) use of oral hypoglycemic drugs; E86.0 Dehydration
CPT/HCPCS: 71010; 80048; 80053; 81001; 82550; 83605; 83690; 83735; 83880; 84443; 84484; 85025; 85027; 86140; 87040; 87077; 87086; 87186; 93005; 96374; J0692; J0744; J1644; J2405; J7030

== ENCOUNTER 2017-01-17 19:35 | Emergency (ER) | payer MEDICARE, MEDICAID ==
[~2017-01-17] VITALS: Ht 165.1 cm; Wt 60.0 kg
[~2017-01-17 19:35] MED LIST changes: +AMLO5TAB2 PO; +ASPI81CH CHEW; +ATOR40TA16 PO; -CARV6.25 PO; +CARV6.252 PO; +CEFU1TAB20 PO; -GABA300C3 PO; +GABA300C5 PO; -GLUCTAB PO; +HYDR25TA5 PO; +LOSA50TA PO; +METF1000 PO; -METF500 PO; +METF500T PO; -NORV5TAB PO; -PERC7.5T13 PO; -RANI150 PO; +RANI150T PO; -ZOLP10TA3 PO
[2017-01-17 19:37] VITALS: BP 199/84; PULSE 98; RESP 18; TEMP 99.2; O2SAT 97
[2017-01-17] MEDS ORDERED: GABA400C5 PO (21:07)
[2017-01-17 21:30] VITALS: BP 182/78; PULSE 92; RESP 16; O2SAT 96
[2017-01-17] MEDS ORDERED: KETOROLAC TROMETHAMINE 30 MG/ML (IVP) VIAL IV PUSH ONE (21:30)
--- NOTE | 2017-01-17 22:00 | RADRPT ---
EXAM DATE/TIME: 01/17/2017 21:43 [facility] COMPARISON: No previous studies available for comparison. INDICATIONS : Left knee pain and swelling, no known injury. MEDICAL HISTORY : None. SURGICAL HISTORY : None. ENCOUNTER: Initial ACUITY: 2 days PAIN SCORE: 5/10 LOCATION: Left knee. FINDINGS: There is severe tricompartment osteoarthritis, especially the medial and patellofemoral compartments. Very large osteophytes are demonstrated. There are multiple large joint bodies seen as well in the s uprapatellar recess. A large joint effusion is present. No fracture or subluxation seen. CONCLUSION: 1. Severe osteoarthritis with extensive osteophytosis and large joint bodies. A 2. Large joint effusion, nonspecific but presumably reactive. 3. No fracture or subluxation seen of the left knee. Richard Li MD on January 17, 2017 at 21:57 Board Certified Radiologist. This report was verified electronically.
[2017-01-17 22:25] LABS: BASOPHIL # 0.1 TH/MM3 (0-0.2); BASOPHIL % 0.6 % (0.0-2.0); EOSINOPHIL # 0.3 TH/MM3 (0-0.4); EOSINOPHIL % 2.4 % (0.0-4.0); HEMATOCRIT 36.7 % (35.0-46.0); HEMO FLAGS DIFF FINAL; LYMPH % 18.8 % (9.0-44.0); LYMPHOCYTE # 2.2 TH/MM3 (1.0-4.8); MEAN CELL VOLUME 86.6 FL (80.0-100.0); MEAN CORPUSCULAR HEMOGLOBIN 28.5 PG (27.0-34.0); MEAN CORPUSCULAR HGB CONC 32.9 % (32.0-36.0); MONO % 9.7 % (0.0-8.0); NEUT % 68.5 % (16.0-70.0); PLATELET COUNT 268 TH/MM3 (150-450); RED BLOOD COUNT 4.24 MIL/MM3 (4.00-5.30); RED CELL DISTRIBUTION WIDTH 13.9 % (11.6-17.2); WHITE BLOOD COUNT 11.7 TH/MM3 (4.0-11.0)
[2017-01-17 22:42] VITALS: BP 178/71; PULSE 90; RESP 16; O2SAT 98
[2017-01-17 22:54] LABS: ANION GAP 7 MEQ/L (5-15); AST (GOT) 16 U/L (15-37); BICARBONATE 30.4 MEQ/L (21.0-32.0); BLOOD UREA NITROGEN 21 MG/DL (7-18); CHLORIDE 105 MEQ/L (98-107); GLOMERULAR FILTRATION RATE 55 ML/MIN (>89); POTASSIUM 4.6 MEQ/L (3.5-5.1); SODIUM (NA) 142 MEQ/L (136-145)
[2017-01-17 22:56] LABS: ALKALINE PHOSPHATASE 83 U/L (45-117); ALT (GPT) 16 U/L (10-53); TOTAL BILIRUBIN ADULT 0.6 MG/DL (0.2-1.0)
[2017-01-17] MEDS ORDERED: VOLT1GEL4 TOPICAL (23:14)
--- NOTE | 2017-01-17 23:14 | PD ---
HPI Chief Complaint: Injury Time Seen by Provider: 21:14 Travel History International Travel<30 days: No Contact w/Intl Traveler<30days: No Traveled to known affect area: No History of Present Illness HPI Patient is a 71-year-old female who comes in complaining of left knee pain and swelling. She says it started yesterday when she was getting out of a van. She denies any direct injury, but she says that she climbed into the van and then when she climbed out and turn to close a door is when her knee started to hurt. She no she has severe arthritis of the knee and was told she needed to have it replaced several years ago. She denies fever or chills. She denies any other pains. PFSH Past Medical History Hx Anticoagulant Therapy: Yes Asthma: Yes Heart Rhythm Problems: Yes Cancer: No Cardiovascular Problems: Yes High Cholesterol: Yes Chemotherapy: Yes Dementia: Yes Diabetes: Yes (BORDERLINE) Patient Takes Glucophage: No Deep Vein Thrombosis: Yes (HX OF DVT LEFT) Gastrointestinal Disorders: Yes Hypertension: Yes Insomnia: Yes Neurologic: No Psychiatric: No Reproductive: No Respiratory: Yes Immunizations Current: Yes Thyroid Disease: Yes (HYPOTHYROIDISM) ?: Not Past Surgical History Cholecystectomy: Yes Ear Surgery: Yes Joint Replacement: Yes (RT. KNEE AND RT. SHOULDER REPLACEMENT) Other Surgery: Yes (THYROIDECTOMY) Social History Alcohol Use: No Tobacco Use: No Substance Use: No Allergies-Medications (Allergen,Severity, Reaction): Coded Allergies: No Known Allergies (Unverified , 01/17/17) Reported Meds & Prescriptions Reported Meds & Active Scripts Active Reported Gabapentin 400 Mg Cap 300 Cap PO HS Atorvastatin (Atorvastatin Calcium) 40 Mg Tab 40 Mg PO HS Aspirin 81 Mg Chew 81 Mg CHEW DAILY Carvedilol 6.25 Mg Tab 6.25 Mg PO HS Carvedilol 6.25 Mg Tab 12.5 Mg PO DAILY Metformin (Metformin HCl) 500 Mg Tab 500 Mg PO HS With a meal Metformin (Metformin HCl) 1,000 Mg Tab 1,000 Mg PO DAILY With a meal Ranitidine (Ranitidine HCl) 150 Mg Tab 150 Mg PO BID Hydrochlorothiazide 25 Mg Tab 25 Mg PO DAILY Losartan (Losartan Potassium) 50 Mg Tab 50 Mg PO DAILY Levothyroxine (Levothyroxine Sodium) 112 Mcg Tab 224 Mcg PO DAILY Amlodipine (Amlodipine Besylate) 5 Mg Tab 5 Mg PO DAILY Review of Systems Except as stated in HPI: all other systems reviewed are Neg General / Constitutional: No: Fever, Chills HENT: No: Headaches Cardiovascular: No: Chest Pain or Discomfort Respiratory: No: Shortness of Breath Gastrointestinal: No: Nausea, Vomiting Genitourinary: No: Dysuria Musculoskeletal: Positive: Edema, Pain Skin: No Rash, No Change in Pigmentation Neurologic: No: Weakness, Dizziness Physical Exam Narrative GENERAL: Awake and alert, in no acute distress. SKIN: Focused skin assessment warm/dry. HEAD: Atraumatic. Normocephalic. EYES: Pupils equal and round. No scleral icterus. ENT: Mucous membranes pink and moist. NECK: Trachea midline. No JVD. CARDIOVASCULAR: Regular rate and rhythm. No murmur appreciated. RESPIRATORY: No accessory muscle use. Clear to auscultation. Breath sounds equal bilaterally. MUSCULOSKELETAL: No obvious deformities. No clubbing. No cyanosis. Swelling of the left knee, slightly warm to the touch. No erythema of the joint. She is able to bend the knee to almost 90 and straighten it on her own. Pedal pulses intact. NEUROLOGICAL: Awake and alert. No obvious cranial nerve deficits. Motor grossly within normal limits. Normal speech. PSYCHIATRIC: Appropriate mood and affect; insight and judgment normal. Data Data Last Documented VS Vital Signs Date Time Temp Pulse Resp B/P Pulse Ox O2 Delivery O2 Flow Rate FiO2 01/17/17 22:42 90 16 178/71 98 Room Air 01/17/17 19:37 99.2 Orders Iv Access Insert/Monitor (01/17/17 21:25) Complete Blood Count With Diff (01/17/17 21:25) Comprehensive Metabolic Panel (01/17/17 21:25) Westergren Sedimentation Rate (01/17/17 21:25) Knee, Complete (4vws) (01/17/17 ) Ketorolac Inj (Toradol Inj) (01/17/17 21:30) Labs Laboratory Tests Test 01/17/17 21:58 White Blood Count 11.7 TH/MM3 Red Blood Count 4.24 MIL/MM3 Hemoglobin 12.1 GM/DL Hematocrit 36.7 % Mean Corpuscular Volume 86.6 FL Mean Corpuscular Hemoglobin 28.5 PG Mean Corpuscular Hemoglobin 32.9 % Concent Red Cell Distribution Width 13.9 % Platelet Count 268 TH/MM3 Mean Platelet Volume 8.0 FL Neutrophils (%) (Auto) 68.5 % Lymphocytes (%) (Auto) 18.8 % Monocytes (%) (Auto) 9.7 % Eosinophils (%) (Auto) 2.4 % Basophils (%) (Auto) 0.6 % Neutrophils # (Auto) 8.0 TH/MM3 Lymphocytes # (Auto) 2.2 TH/MM3 Monocytes # (Auto) 1.1 TH/MM3 Eosinophils # (Auto) 0.3 TH/MM3 Basophils # (Auto) 0.1 TH/MM3 CBC Comment DIFF FINAL Differential Comment Erythrocyte Sedimentation Rate 44 mm/hr Sodium Level 142 MEQ/L Potassium Level 4.6 MEQ/L Chloride Level 105 MEQ/L Carbon Dioxide Level 30.4 MEQ/L Anion Gap 7 MEQ/L Blood Urea Nitrogen 21 MG/DL Creatinine 0.99 MG/DL Estimat Glomerular Filtration 55 ML/MIN Rate Random Glucose 99 MG/DL Calcium Level 9.2 MG/DL Total Bilirubin 0.6 MG/DL Aspartate Amino Transf 16 U/L (AST/SGOT) Alanine Aminotransferase 16 U/L (ALT/SGPT) Alkaline Phosphatase 83 U/L Total Protein 8.2 GM/DL Albumin 3.8 GM/DL [facility] Medical Decision Making Medical Screen Exam Complete: Yes Emergency Medical Condition: Yes Differential Diagnosis Arthritis versus ligamentous injury versus infection (unlikely) versus fracture Narrative Course Patient is a 71-year-old female who comes in complaining of pain and swelling of her left knee. This started after she was getting out of a van yesterday. Exam shows swelling of the joint, mild warmth to the touch. X-ray of the knee performed shows severe osteoarthritis with the bones rubbing. Last 24 hours Impressions Knee X-Ray 01/17/17 0000 Signed Impressions: Service Date/Time: December 21:43 - CONCLUSION: 1. Severe osteoarthritis with extensive osteophytosis and large joint bodies. A 2. Large joint effusion, nonspecific but presumably reactive. 3. No fracture or subluxation seen of the left knee. Richard Li MD Labs show a slight elevation in ESR to 44, but this is normal with age adjustment. Patient given 15 mg of Toradol with some improvement of her symptoms. Given an Rich wrap to wear for stability and some compression. Given a prescription for Voltaren cream. Advised follow-up with orthopedics. Extend to the patient that I believe it is unlikely that she is having an infection of the joint. Explained that the only way to rule this out completely is by performing arthrocentesis to test the fluid in her knee. She declines this procedure at this time, but will come back to the emergency department if her symptoms do not improve or become worse at any time. She and her family are comfortable with discharge at this time. Diagnosis Primary Impression: Knee swelling Referrals: Jovany Cobian MD call for appointment Patient Instructions: Arthritis (ED), General Instructions, Knee Pain (ED) Additional Instructions: Apply Voltaren cream for pain relief. Use the Rich Bandage for stability and compression. Follow up with orthopedics. Return to the ED at any time for any worsening symptoms. Scripts Diclofenac Sodium (Voltaren)100 Gm Gel..gram.1 Applic TOPICAL QID PRN (PAIN 1 TO 10 AND/OR AGITATION) 7 Days Prov:Julisa Amado MD 01/17/17 Disposition: 01 DISCHARGE HOME Condition: Stable Julisa Amado MD January 17, 2017 23:14
== END 2017-01-17 23:34 | disposition home or self-care (01) ==
LOC: NEPD 19:35
DX: M25.462 Effusion, left knee (principal); J45.909 Unspecified asthma, uncomplicated; I10 Essential (primary) hypertension; E03.9 Hypothyroidism, unspecified; Z79.01 Long term (current) use of anticoagulants
CPT/HCPCS: 73564; 80053; 85025; 85652; 96374; 99284; J1885

== ENCOUNTER 2017-04-29 18:41 | Emergency (ER) | payer MEDICARE, MEDICAID ==
[~2017-04-29] VITALS: Ht 165.1 cm; Wt 78.0 kg
[~2017-04-29 18:41] MED LIST changes: -CEFU1TAB20 PO; -GABA300C5 PO; +GABA400C5 PO; +VOLT1GEL4 TOPICAL
[2017-04-29 18:43] VITALS: BP 159/77; PULSE 84; RESP 24; TEMP 98.8; O2SAT 97
--- NOTE | 2017-04-29 19:14 | PD ---
HPI Chief Complaint: Fall Time Seen by Provider: 19:08 Travel History International Travel<30 days: No Contact w/Intl Traveler<30days: No Traveled to known affect area: No History of Present Illness HPI The patient is a 71 year old female who presents to the [facility] emergency department with a history of falling in her kitchen prior to arrival. The patient reports that this occurred approximately 30 minutes ago. The patient fell onto her anterior left knee. She is unsure how she fell, however she reports that she does have an unsteady gait and frequently falls. She reports that she normally uses a cane to walk, however sometimes she does not use a cane at home. The patient reports having anterior knee pain, lateral knee pain. She reports that she did not hit her head or lose consciousness. She denies having any neck pain associated with this. She denies having any paresthesias, numbness or tingling, or weakness to her extremities. She denies having any new back pain. She reports that she does have a history of chronic back pain which is managed intermittently with taking when necessary Aleve. A review of systems otherwise she reports that she has been eating and drinking well. She denies having any recent fevers, cough, congestion, neck pain, chest pain, shortness of breath, abdominal pain, vomiting, diarrhea, urinary symptoms , or neurologic symptoms. PCP: Dr. Dianna Guallpa. [facility] Past Medical History Narrative Medical the patient's past medical history is significant for hyperlipidemia, dementia, hypertension, unsteady gait, chronic back pain, osteoarthritis, asthma Hx Anticoagulant Therapy: Yes Asthma: Yes Heart Rhythm Problems: Yes Cancer: No Cardiovascular Problems: Yes High Cholesterol: Yes Chemotherapy: Yes Dementia: Yes Diabetes: Yes Patient Takes Glucophage: Yes Diminished Hearing: Yes (HEARING AID IN RIGHT EAR) Deep Vein Thrombosis: Yes (HX OF DVT LEFT) Gastrointestinal Disorders: Yes Hypertension: Yes Insomnia: Yes Neurologic: No Psychiatric: No Reproductive: No Respiratory: Yes (ASTHMA) Immunizations Current: Yes Thyroid Disease: Yes (HYPOTHYROIDISM) Tetanus Vaccination: < 5 Years Influenza Vaccination: Yes Past Surgical History Narrative Surgical The patient's past surgical history is significant for ear surgery, cystectomy, right knee replacement, right shoulder replacement. Cholecystectomy: Yes Ear Surgery: Yes Joint Replacement: Yes (RT. KNEE AND RT. SHOULDER REPLACEMENT) Other Surgery: Yes (THYROIDECTOMY) Social History Alcohol Use: No Tobacco Use: No Substance Use: No Allergies-Medications (Allergen,Severity, Reaction): Coded Allergies: No Known Allergies (Unverified , 04/29/17) Reported Meds & Prescriptions Reported Meds & Active Scripts Active Lortab (Hydrocodone-Acetaminophen) 5-325 Mg Tab 0.5 Tab PO Q6H PRN Reported Gabapentin 400 Mg Cap 300 Cap PO HS Atorvastatin (Atorvastatin Calcium) 40 Mg Tab 40 Mg PO HS Aspirin 81 Mg Chew 81 Mg CHEW DAILY Carvedilol 6.25 Mg Tab 6.25 Mg PO HS Carvedilol 6.25 Mg Tab 12.5 Mg PO DAILY Metformin (Metformin HCl) 500 Mg Tab 500 Mg PO HS With a meal Metformin (Metformin HCl) 1,000 Mg Tab 1,000 Mg PO DAILY With a meal Ranitidine (Ranitidine HCl) 150 Mg Tab 150 Mg PO BID Hydrochlorothiazide 25 Mg Tab 25 Mg PO DAILY Losartan (Losartan Potassium) 50 Mg Tab 50 Mg PO DAILY Levothyroxine (Levothyroxine Sodium) 112 Mcg Tab 224 Mcg PO DAILY Amlodipine (Amlodipine Besylate) 5 Mg Tab 5 Mg PO DAILY Review of Systems Except as stated in HPI: all other systems reviewed are Neg General / Constitutional: No: Fever Eyes: No: Visual changes HENT: No: Headaches Cardiovascular: No: Chest Pain or Discomfort Respiratory: No: Shortness of Breath Gastrointestinal: No: Abdominal Pain Genitourinary: No: Dysuria Musculoskeletal: Positive: Myalgias, Arthralgias, Edema, Pain Skin: No Rash Neurologic: No: Weakness, Focal Abnormalities, Change in Mentation, Slurred Speech, Sensory Disturbance Psychiatric: No: Depression Endocrine: No: Polydipsia Hematologic/Lymphatic: No: Easy Bruising Physical Exam Narrative General: The patient is [-]. Head and Neck exam: Head is normocephalic atraumatic. Eyes: EOMI, pupils are equal round and reactive to light. Nose: Midline septum with pink mucous membranes Mouth: Dentition unremarkable. Moist mucus membranes. Posterior oropharynx is not erythematous. No tonsillar hypertrophy. Uvula midline. Airway patent. Neck: No palpable lymphadenopathy. No nuchal rigidity. No thyromegaly. Cardiovascular: Regular rate and rhythm without murmurs, gallops, or rubs. No pulse deficit to the extremities. Lungs: Clear to auscultation bilaterally. No wheezes, rhonchi, or rales. Abdomen: Soft, without tenderness to palpation in all 4 quadrants of the abdomen. No guarding, rebound, or rigidity. Negative Tama sign. Extremities: No clubbing, cyanosis, or edema. 2+ pulses in all 4 extremities. Back: No spinous process tenderness to palpation. No costovertebral angle tenderness to palpation. Neurologic Exam: Cranial nerves 2-12 were intact on exam. Strength is 5/5 in all 4 extremities. No sensory deficits noted. No dysdiadochokinesis. Good finger to nose and Heel to delgado bilaterally. Skin Exam: No rash noted. Intact skin that is warm and dry. lateral aspect left knee, anterior left knee TTP. Swelling is noted. No ligament laxity. Data Data Last Documented VS Vital Signs Date Time Temp Pulse Resp B/P (MAP) Pulse Ox O2 Delivery O2 Flow Rate FiO2 04/29/17 21:10 20 04/29/17 21:08 85 125/65 (85) 98 Room Air 04/29/17 18:43 98.8 Orders Orders Knee, Complete (4vws) (04/29/17 19:14) Ice/Cold Pack (04/29/17 19:14) Ibuprofen (Motrin) (04/29/17 19:45) Ct Knee W/O Contrast (04/29/17 ) Complete Blood Count With Diff (04/29/17 19:52) Basic Metabolic Panel (Bmp) (04/29/17 19:52) Prothrombin Time / Inr (Pt) (04/29/17 19:52) Act Partial Throm Time (Ptt) (04/29/17 19:52) Iv Access Insert/Monitor (04/29/17 19:52) Ecg Monitoring (04/29/17 19:52) Oximetry (04/29/17 19:52) Splint Or Brace Apply/Monitor (04/29/17 21:25) Labs Laboratory Tests Test 04/29/17 20:48 White Blood Count 9.6 TH/MM3 Red Blood Count 3.64 MIL/MM3 Hemoglobin 10.4 GM/DL Hematocrit 31.0 % Mean Corpuscular Volume 85.3 FL Mean Corpuscular Hemoglobin 28.5 PG Mean Corpuscular Hemoglobin Concent 33.5 % Red Cell Distribution Width 15.1 % Platelet Count 308 TH/MM3 Mean Platelet Volume 7.7 FL Neutrophils (%) (Auto) 76.0 % Lymphocytes (%) (Auto) 12.4 % Monocytes (%) (Auto) 9.6 % Eosinophils (%) (Auto) 1.2 % Basophils (%) (Auto) 0.8 % Neutrophils # (Auto) 7.3 TH/MM3 Lymphocytes # (Auto) 1.2 TH/MM3 Monocytes # (Auto) 0.9 TH/MM3 Eosinophils # (Auto) 0.1 TH/MM3 Basophils # (Auto) 0.1 TH/MM3 CBC Comment DIFF FINAL Differential Comment Prothrombin Time 11.2 SEC Prothromb Time International Ratio 1.0 RATIO Activated Partial Thromboplast Time 24.1 SEC Blood Urea Nitrogen 34 MG/DL Creatinine 1.44 MG/DL Random Glucose 148 MG/DL Calcium Level 8.9 MG/DL Sodium Level 140 MEQ/L Potassium Level 4.0 MEQ/L Chloride Level 105 MEQ/L Carbon Dioxide Level 26.5 MEQ/L Anion Gap 9 MEQ/L Estimat Glomerular Filtration Rate 36 ML/MIN MDM Medical Decision Making Medical Screen Exam Complete: Yes Emergency Medical Condition: Yes Medical Record Reviewed: Yes Interpretation(s) Last Impressions Knee X-Ray 04/29/171913 Signed Impressions: Service Date/Time: Saturday, April 29, 2017 19:37 - CONCLUSION: 1. No acute fracture or malalignment. 2. Moderate to severe osteoarthritic change with joint bodies and effusion. Jeffery Whiting MD Differential Diagnosis Knee fracture, versus dislocation, versus cartilaginous injury, versus ligamentous injury, versus contusion Narrative Course During the course of the patients emergency department visit, the patients history, examination, and differential diagnosis were reviewed with the patient. The patient had IV access obtained and blood work sent for analysis. The patient was placed on a radiation monitor with oximetry and blood pressure monitoring. An ice pack was applied to the patient's left knee. The patient was initially provided Motrin 400 mg by mouth 1. The patients laboratory studies were reviewed and remarkable for a white count of 9.6, hemoglobin 10.4, platelets 308 with 76 neutrophils, monocytes 9.6, PT 11.2, INR 1.0, PTT 24.1, basic metabolic profile is remarkable for a BUN of 34, creatinine 1.44, glucose 148. Reviewing the patient's records she does have a history of renal insufficiency. Her BUN/creatinine increased compared to previously, therefore the patient is instructed to increase her fluid intake. Radiology studies were reviewed and remarkable for a knee x-ray that reveals no acute fracture or malalignment, moderate to severe osteoarthritic change with joint bodies an effusion. CT scan of the knee reveals no acute fracture or malalignment, osteopenia and osteoarthritic change with multiple joint bodies. The patient reports that she does not have a local orthopedic physician. The patient will be given the name of the orthopedic physician on-call for follow-up , Dr. Cobian. She was instructed to call his office in the morning for a follow -up. The patient will be discharged home with a prescription for pain medication. Instructed on elevation, ice, immobilization of the area of interest. The patient was given a knee immobilizer for stability. The patient is encouraged to use her cane always with mobility to improve her stability. The patient is resting comfortably and feels better, is alert and in no distress. The patients results and examination findings were discussed with the patient. The repeat examination is unremarkable and benign. The history, exam, diagnostic testing, and current condition do not suggest any significant pathology to warrant further testing, continued ED treatment, admission, or surgical evaluation at this point. The vital signs have been stable. The patient does not have uncontrollable pain, intractable vomiting, or other significant symptoms. The patient's condition is stable and appropriate for discharge. The patient will pursue further outpatient evaluation with a primary care physician or other designated or consulting physician as indicated in the discharge instructions. The patient expressed understanding and was agreeable with this plan. Diagnosis Primary Impression: Left knee pain Qualified Codes: M25.562 - Pain in left knee Additional Impressions: Fall Qualified Codes: W19.XXXA - Unspecified fall, initial encounter Effusion, left knee Osteoarthritis of left knee Qualified Codes: M17.12 - Unilateral primary osteoarthritis, left knee Referrals: Jovany Cobian MD call for appointment Patient Instructions: Fall Prevention for Older Adults (ED), General Instructions, Knee Pain (ED), Osteoarthritis (ED) Med/Other Pt SpecificInfo: Prescription(s) given Scripts Hydrocodone-Acetaminophen (Lortab) 5-325 Mg Tab 0.5 TAB PO Q6H Y for PAIN, #9 TAB 0 Refills Prov: Viky Rutherford MD 04/29/17 Disposition: 01 DISCHARGE HOME Condition: Stable Viky Rutherford MD Apr 29, 2017 19:14
[2017-04-29] MEDS ORDERED: IBUPROFEN 400 MG TAB PO ONE (19:45)
--- NOTE | 2017-04-29 20:15 | RADRPT ---
EXAM DATE/TIME: 04/29/2017 19:37 [facility] COMPARISON: KNEE LEFT COMPLETE (4VWS), January 17, 2017, 21:43. INDICATIONS : Pain post fall. MEDICAL HISTORY : None. SURGICAL HISTORY : None. ENCOUNTER: Initial ACUITY: 1 day PAIN SCORE: 6/10 LOCATION: Left Knee. FINDINGS: A standard 4 view examination of the left knee was obtained and again demonstrates 3 compartment oste oarthritic change greatest in the medial compartment and patellofemoral joint. There are multiple kathy nt bodies in the suprapatellar bursa region. There is no acute fracture or malalignment. There is dif fuse moderate osteopenia. A joint effusion is again noted. CONCLUSION: 1. No acute fracture or malalignment. 2. Moderate to severe osteoarthritic change with joint bodies and effusion. Jeffery Whiting MD on April 29, 2017 at 20:12 Board Certified Radiologist. This report was verified electronically.
[2017-04-29 20:53] VITALS: O2SAT 98
[2017-04-29 21:08] VITALS: BP 125/65; PULSE 85; RESP 20; O2SAT 98
[2017-04-29 21:10] VITALS: RESP 20
[2017-04-29 21:11] LABS: AUTOMATED NEUTROPHIL # 7.3 TH/MM3 (1.8-7.7); BASOPHIL # 0.1 TH/MM3 (0-0.2); BASOPHIL % 0.8 % (0.0-2.0); EOSINOPHIL # 0.1 TH/MM3 (0-0.4); EOSINOPHIL % 1.2 % (0.0-4.0); HEMO FLAGS DIFF FINAL; LYMPH % 12.4 % (9.0-44.0); LYMPHOCYTE # 1.2 TH/MM3 (1.0-4.8); MEAN CELL VOLUME 85.3 FL (80.0-100.0); MEAN CORPUSCULAR HEMOGLOBIN 28.5 PG (27.0-34.0); MEAN CORPUSCULAR HGB CONC 33.5 % (32.0-36.0); MONO % 9.6 % (0.0-8.0); PLATELET COUNT 308 TH/MM3 (150-450); RED BLOOD COUNT 3.64 MIL/MM3 (4.00-5.30); RED CELL DISTRIBUTION WIDTH 15.1 % (11.6-17.2); WHITE BLOOD COUNT 9.6 TH/MM3 (4.0-11.0)
--- NOTE | 2017-04-29 21:15 | RADRPT ---
EXAM DATE/TIME: 04/29/2017 20:09 [facility] COMPARISON: KNEE LEFT COMPLETE (4VWS), April 29, 2017, 19:37. INDICATIONS : Trauma. Fall. Evaluate for fracture. RADIATION DOSE: 10.01 CTDIvol (mGy) MEDICAL HISTORY : Dementia. Cardiovascular disease Hypertension.DVT Diabetes SURGICAL HISTORY : Appendectomy. Total knee replacement, right. Right shoulder replacement ENCOUNTER: Initial ACUITY: 1 day PAIN SCALE: 6/10 LOCATION: Left knee TECHNIQUE: Volumetric scanning of the knee was performed. Using automated exposure control and adjustment of th e mA and/or kV according to patient size, radiation dose was kept as low as reasonably achievable to obtain optimal diagnostic quality images. DICOM format image data is available electronically for re view and comparison. FINDINGS: BONES: No evidence of fracture. Alignment is within normal limits. There is diffuse osteopenia. JOINTS: 3 compartment osteoarthritic changes again noted with joint space loss, sclerosis and hypertrophic ch tarah. There multiple joint bodies noted in the suprapatellar bursa seen on the plain film. There is a moderate joint effusion SOFT TISSUES: Muscles, tendons and neurovascular structures are grossly unremarkable. No evidence of mass, organize d fluid collection, or foreign body. CONCLUSION: 1. No acute fracture or malalignment. 2. Osteopenia and osteoarthritic change with multiple joint bodies. Jeffery Whiting MD on April 29, 2017 at 21:12 Board Certified Radiologist. This report was verified electronically.
[2017-04-29 21:18] LABS: APTT (PATIENT) 24.1 SEC (24.3-30.1); PROTHROMBIN TIME - PATIENT 11.2 SEC (9.8-11.6)
[2017-04-29] MEDS ORDERED: HYDR-3533 PO (21:23)
[2017-04-29 21:34] LABS: BICARBONATE 26.5 MEQ/L (21.0-32.0)
[2017-04-29 22:57] VITALS: O2SAT 97
== END 2017-04-29 22:20 | disposition home or self-care (01) ==
LOC: NEPC 18:41
DX: M25.562 Pain in left knee (principal); M17.12 Unilateral primary osteoarthritis, left knee; E78.5 Hyperlipidemia, unspecified; E11.9 Type 2 diabetes mellitus without complications; E03.9 Hypothyroidism, unspecified; I10 Essential (primary) hypertension; W19.XXXA Unspecified fall, initial encounter; Y92.000 Kitchen of unspecified non-institutional (private) residence as the place of occurrence of the external cause; Z79.84 Long term (current) use of oral hypoglycemic drugs; Z79.899 Other long term (current) drug therapy
CPT/HCPCS: 73564; 73700; 80048; 85025; 85610; 85730; 99285; L1830

== ENCOUNTER 2017-08-15 10:59 | Emergency (ER) | payer MEDICARE, MEDICAID ==
[~2017-08-15] VITALS: Ht 165.1 cm; Wt 59.7 kg
[~2017-08-15 10:59] MED LIST changes: +ASPI-516 CHEW; -ASPI81CH CHEW; +HYDR-3533 PO; -VOLT1GEL4 TOPICAL
[2017-08-15 11:02] VITALS: BP 122/74; PULSE 80; RESP 18; TEMP 98.3; O2SAT 97
--- NOTE | 2017-08-15 11:30 | PD ---
HPI Chief Complaint: Laceration/Skin Injury Time Seen by Provider: 11:30 Travel History International Travel<30 days: No Contact w/Intl Traveler<30days: No Traveled to known affect area: No History of Present Illness HPI 72-year-old female presents to emergency department complaining of a skin tear to the right ring finger that occurred last night. Patient states that she was taking a turkey out of the freezer and the turkey fell against her finger resulting in this skin tear. Patient states that she is here today because she was unable to control the bleeding last night. Patient denies pain, numbness, or tingling to the area. Patient has full range of motion of her finger without weakness. Patient has no other complaints today. PFSH Past Medical History Hx Anticoagulant Therapy: Yes Asthma: Yes Heart Rhythm Problems: Yes Cancer: No Cardiovascular Problems: Yes High Cholesterol: Yes Chemotherapy: Yes Dementia: Yes Diabetes: Yes Diminished Hearing: Yes (HEARING AID IN RIGHT EAR) Deep Vein Thrombosis: Yes (HX OF DVT LEFT) Gastrointestinal Disorders: Yes Hypertension: Yes Insomnia: Yes Neurologic: No Psychiatric: No Reproductive: No Respiratory: Yes (ASTHMA) Immunizations Current: Yes Thyroid Disease: Yes (HYPOTHYROIDISM) ?: Not Past Surgical History Cholecystectomy: Yes Ear Surgery: Yes Joint Replacement: Yes (RT. KNEE AND RT. SHOULDER REPLACEMENT) Other Surgery: Yes (THYROIDECTOMY) Social History Alcohol Use: No Tobacco Use: No Substance Use: No Allergies-Medications (Allergen,Severity, Reaction): Coded Allergies: No Known Allergies (Unverified , 04/29/17) Reported Meds & Prescriptions Reported Meds & Active Scripts Active Lortab (Hydrocodone-Acetaminophen) 5-325 Mg Tab 0.5 Tab PO Q6H PRN Reported Gabapentin 400 Mg Cap 300 Cap PO HS Atorvastatin (Atorvastatin Calcium) 40 Mg Tab 40 Mg PO HS Aspirin 81 Mg Chew 81 Mg CHEW DAILY Carvedilol 6.25 Mg Tab 6.25 Mg PO HS Carvedilol 6.25 Mg Tab 12.5 Mg PO DAILY Metformin (Metformin HCl) 500 Mg Tab 500 Mg PO HS With a meal Metformin (Metformin HCl) 1,000 Mg Tab 1,000 Mg PO DAILY With a meal Ranitidine (Ranitidine HCl) 150 Mg Tab 150 Mg PO BID Hydrochlorothiazide 25 Mg Tab 25 Mg PO DAILY Losartan (Losartan Potassium) 50 Mg Tab 50 Mg PO DAILY Levothyroxine (Levothyroxine Sodium) 112 Mcg Tab 224 Mcg PO DAILY Amlodipine (Amlodipine Besylate) 5 Mg Tab 5 Mg PO DAILY Review of Systems Except as stated in HPI: all other systems reviewed are Neg Physical Exam Narrative GENERAL: Well-nourished in no apparent distress SKIN: Focused skin assessment warm/dry. HEAD: Atraumatic. Normocephalic. EYES: Pupils equal and round. No scleral icterus. No injection or drainage. ENT: No nasal bleeding or discharge. Mucous membranes pink and moist. NECK: Trachea midline. No JVD. MUSCULOSKELETAL: No obvious deformities. No clubbing. No cyanosis. No edema. Right ring finger- lateral aspect with a 2-3 cm skin tear, bleeding controlled. Ecchymosis immediately over the skin flap. Full range of motion of finger without crepitus or deformities. Tendon strength intact. Neurovascularly intact. NEUROLOGICAL: Awake and alert. No obvious cranial nerve deficits. Motor grossly within normal limits. Normal speech. PSYCHIATRIC: Appropriate mood and affect; insight and judgment normal. Data Data Last Documented VS Vital Signs Date Time Temp Pulse Resp B/P (MAP) Pulse Ox O2 Delivery O2 Flow Rate FiO2 08/15/17 11:02 98.3 80 18 122/74 (90) 97 Room Air Orders Orders Ed Discharge Order (08/15/17 11:31) MDM Medical Decision Making Medical Screen Exam Complete: Yes Emergency Medical Condition: Yes Differential Diagnosis Right ring finger Skin tear, avulsion, abrasion, laceration Narrative Course 72-year-old female presents to emergency department complaining of a skin tear to the right ring finger that occurred last night. Patient states that she was taking a turkey out of the freezer and the turkey fell against her finger resulting in this injury. Daughter states that the patient is here today because she was unable to control the bleeding last night. Patient denies pain , numbness, or tingling to the area. Patient has full range of motion of her finger without weakness. Patient has no other complaints today. Vital signs stable. Physical exam findings consistent with a skin tear. 3 cm x 1 cm skin flap, not grossly contaminated. No evidence of fracture, infection, or tendon involvement. Neurovascularly intact Site cleansed with iodine and warm water. Patient tolerated well. Triple antibiotic ointments, nonstick gauze, and Band-Aids are placed over the wound. No evidence of tendon involvement. The skin tear is superficial with bleeding controlled. I offered imaging studies however, patient and daughter agree to hold off. I explained to them that I did not see evidence of fracture or bony injury but if she develops increased pain or swelling to return to the ED for further evaluation and possible imaging studies. I gave strict wound care instructions the patient. Advised that if she develop pain, increased swelling, or erythema to return to the emergency department. Strongly advised patient to follow up with primary care physician for wound care and follow-up. Patient and daughter understood and will comply. Diagnosis Primary Impression: Skin tear of right hand without complication Qualified Codes: S61.411A - Laceration without foreign body of right hand, initial encounter Referrals: Primary Care Physician Patient Instructions: General Instructions, Skin Avulsion (ED) Additional Instructions: Follow up with your primary care physician within 2-3 days. If your symptoms persist or worsen, return to the emergency department. Keep area clean and dry. You may bathe as normal. You may use [id number] triple antibiotic ointments for your finger daily. Change dressings daily. If bleeding starts again, applied pressure and elevate the area. Disposition: 01 DISCHARGE HOME Condition: Stable Meghana Collins Aug 15, 2017 11:30
== END 2017-08-15 12:10 | disposition home or self-care (01) ==
LOC: NEPK 10:59
DX: S61.214A Laceration without foreign body of right ring finger without damage to nail, initial encounter (principal); J45.909 Unspecified asthma, uncomplicated; E78.00 Pure hypercholesterolemia, unspecified; E11.9 Type 2 diabetes mellitus without complications; F03.90 Unspecified dementia, unspecified severity, without behavioral disturbance, psychotic disturbance, mood disturbance, and anxiety; I10 Essential (primary) hypertension; E03.9 Hypothyroidism, unspecified; W22.8XXA Striking against or struck by other objects, initial encounter; Z86.718 Personal history of other venous thrombosis and embolism
CPT/HCPCS: 99282